=== PATIENT | female | born 1970 | race American Indian/Alaskan Native ===

== ENCOUNTER 2017-09-18 07:13 | Day surgery (SDC) | payer OTHER ==
[~2017-09-18 07:13] MED LIST: NACL 0.9% 1000 ML 1,000 ML IV SCH; OMNIPAQUE 300 MG/50 ML (CATH LAB) IV ONE; VERSED IV NR
[2017-09-18] MEDS ORDERED: XYLOCAINE MPF 2% ONE (09:50)
[2017-09-18] MEDS ORDERED: DIPRIVAN 10 MG/ML IV ONE (09:50)
[2017-09-18] MEDS ORDERED: ZOFRAN ONE (09:50)
[2017-09-18] MEDS ORDERED: DILAUDID ONE (09:51)
[2017-09-18] MEDS ORDERED: DECADRON ONE (09:54)
[2017-09-18] MEDS ORDERED: ANCEF/STERILE WATER 2 GM/20 ML IV NR (10:00)
[2017-09-18] MEDS ORDERED: DILAUDID IV PRN (10:01)
[2017-09-18] MEDS ORDERED: ZOFRAN IV PRN (10:01)
--- NOTE | 2017-09-18 10:01 | Anesthesia Day of Surgery ---
Anesthesia Day of Surgery - Day of Surgery Patient Examined: Yes Patient H&P Reviewed: Yes Patient is NPO: Yes
--- NOTE | 2017-09-18 10:01 | Anesthesia Consultation ---
Anesthesia Consult and Med Hx Date of service: 09/18/17 - Airway Anesthetic Teeth Evaluation: Good ROM Head & Neck: Adequate Mental/Hyoid Distance: Adequate Mallampati Class: Class II Intubation Access Assessment: Probably Good - Pulmonary Exam CTA: Yes - Cardiac Exam Cardiac Exam: RRR - Pre-Operative Health Status ASA Pre-Surgery Classification: ASA2 Proposed Anesthetic Plan: General - Pulmonary Hx Smoking: No Hx Sleep Apnea: No (KO PRE SCREEN HIGH RISK) - Cardiovascular System Hx Hypertension: No - Central Nervous System Hx Back Pain: Yes - Endocrine Hx Hypothyroidism: Yes (ON DAILY MEDS) - Hematic Hx Anemia: (NOT RECENT)
[2017-09-18] MEDS ORDERED: OMNIPAQUE 300 MG/50 ML (CATH LAB) IV ONE (10:40)
[2017-09-18] MEDS ORDERED: TORADOL ONE (11:07)
[2017-09-18] MEDS ORDERED: NACL 0.9% 1000 ML 1,000 ML ONE (11:13)
--- NOTE | 2017-09-18 12:15 | Short Stay Summary ---
Short Stay Documentation Date of service: 09/18/17 - Allergies and Medications Current Medications: Allergies No Known Allergies Allergy (Verified 09/11/17 11:55) Home Medications Medication Instructions Recorded Confirmed Last Taken Type Butalb/Acetamin/Caff 50-325-40 1 tab PO Q8HR PRN 09/11/17 09/18/17 09/04/17 History [Fioricet] Celecoxib [celeBREX] 200 mg PO PRN PRN 09/11/17 09/18/17 09/04/17 History Cholecalciferol (Vitamin D3) 2,000 unit PO DAILY 09/11/17 09/18/17 09/04/17 History [Vitamin D3] Diclofenac EC [Voltaren] 75 mg PO PRN PRN 09/11/17 09/18/17 09/04/17 History Levothyroxine Sodium [Synthroid] 175 mcg PO DAILY 09/11/17 09/18/17 09/17/17 History Mirabegron [Myrbetriq] 25 mg PO QDAY 09/11/17 09/18/17 09/04/17 History traMADol [Ultram] 50 mg PO Q6HR PRN 09/11/17 09/18/17 09/04/17 History Active Medications Cefazolin Sodium (Ancef/Sterile Water 2 Gm/20 Ml) 2 gm IV PREOP NR Stop: 09/18/17 23:59 Hydromorphone HCl (Dilaudid) 0.5 mg IV Q10MIN PRN PRN Reason: Pain , Severe (7-10) Stop: 09/18/17 18:00 Sodium Chloride (Nacl 0.9% 1000 Ml) 1,000 mls @ 100 mls/hr IV DIRECT JULES Last Admin: 09/18/17 08:21 Dose: 100 mls/hr Midazolam HCl (Versed) 2 mg IV PREOP NR Stop: 09/18/17 23:59 Ondansetron HCl (Zofran) 4 mg IV ONCE PRN PRN Reason: Nausea And Vomiting Stop: 09/18/17 18:00 - Brief post op/procedure progress note Date of procedure: 09/18/17 Pre-op diagnosis: right hydro, uret abn rad Post-op diagnosis: same Procedure: cysto righ urs, rt 628 stent brpg Anesthesia: GETA Findings: uret sten, hydro Surgeon: YUDELKA NEIL Estimated blood loss: minimal Pathology: none Condition: stable - Hospital course Hospital course: [facility] - Disposition Condition at discharge: Good Disposition: DC-01 TO HOME OR SELFCARE Short Stay Discharge Plan Activity: advance as tolerated Diet: advance as tolerated Follow up with: YUDELKA NEIL MD [Staff Physician] - 7 Days
--- NOTE | 2017-09-18 16:10 | Post Anesthesia Evaluation ---
- Post Anesthesia Evaluation Patient Participated: Yes Airway Patent: Yes Stable Respiratory Function: Yes Nausea/Vomiting: No Temp > 96.8F: Yes Pain Manageable: Yes Adequeate Hydration: Yes
[2017-09-18 21:06] VITALS: BP 115/60
--- NOTE | 2017-09-20 09:01 | Fluoroscopy Report ---
FLUOROSCOPY RETROGRADE UROGRAPHY: HISTORY: Hydronephrosis. FINDINGS: Fluoroscopy was provided by radiology during retrograde urography by the urologist. 14 fluoroscopic images were captured. There is adequate filling of the ureters and intrarenal collecting systems with no filling defects or anatomic abnormalities identified. Please correlate with the procedural report if needed. A right ureteral stent was placed which adequately drains the right collecting system on the final image. IMPRESSION: Right ureteral stent placement.
--- NOTE | 2017-09-30 22:58 | Operative Report ---
PREOPERATIVE DIAGNOSIS: Right hydro and ureteral abnormality. POSTOPERATIVE DIAGNOSIS: Right hydro and ureteral abnormality. PROCEDURE: Cystoscopy, right ureteroscopy, right 6 x 20 double-J stent, bilateral RPG. ANESTHESIA: General. FINDINGS: Ureteral stenosis and hydronephrosis. ESTIMATED BLOOD LOSS: Minimal. SURGEON: Radu Merino MD PATHOLOGY: None. CONDITION: Stable. CLINICAL INDICATIONS: The patient was counseled RCBA, antibiotics, SCDs. She had CT that demonstrated hydronephrosis and some calyceal blunting and some possible ureteral abnormality proximally. The patient was counseled on options including observation with interval imaging, uterine cancer cells studies, cystoscopy with RPG are aggressive with ureteroscopy for visualization. She wanted to proceed with this. DESCRIPTION OF PROCEDURE: The patient had antibiotics, SCDs, transferred to OR suite in supine position, anesthesia, dorsal lithotomy, prepped and draped in standard fashion. A 22-Nepali scope passed. Pancystoscopy 30 and 70 degree lens, no tumors or lesions. Left UO cannulated 8 Nepali cone-tipped catheter, contrast injected. Normal left distal ureter, proximal ureter, renal pelvis calyces. No filling defects or hydronephrosis. Repeated on the right side with some narrowing of the ureter and hydronephrosis and some blunting of the calyces. At this point, a Glidewire was passed. We attempted passing a flexible ureteroscope and this would not pass. I used 8/10 ureteral dilator. Then, we did pass this flexible scope. We were able to pass up to the mid ureter, but unable to pass easily beyond this point. Of note, even in this mid ureter, there seemed to be areas of mild stenosis whether this was no clear tumor up to that point, but seemed to be some stenosis of the ureter even visualizing distally some stenosis likely. At this point, it was elected to remove the scope. Wire backloaded on the cystoscope. A 6 x 20 double-J stent was passed under direct and fluoroscopic visualization. When the wire and string was removed, nice proximal and distal J. Bladder drained. Exam under anesthesia, no palpable urethral masses. PLAN: The patient will undergo staged options and discussed in the office, after passive dilation, removal of stent, and repeat attempt at ureteroscopy. JOB# [id number] ATS/NTS
== END 2017-09-18 14:55 | disposition home or self-care (01) ==
LOC: OR 07:13
PROVIDERS: ATTEND Urology
DX: N13.0 Hydronephrosis with ureteropelvic junction obstruction (principal); N13.5 Crossing vessel and stricture of ureter without hydronephrosis; I10 Essential (primary) hypertension; E03.9 Hypothyroidism, unspecified; Z79.899 Other long term (current) drug therapy
CPT/HCPCS: 52332; 74420; 81025; C1726; C1758; C1769; C2617; J0690; J1100; J1170; J1885; J2405; J2704; J7030; Q9967

== ENCOUNTER 2017-10-24 06:10 | Day surgery (SDC) | payer OTHER ==
[2017-10-24] MEDS ORDERED: NACL BACTERIOSTATIC INFILTRATI ONE (07:05)
[2017-10-24] MEDS ORDERED: XYLOCAINE MPF 2% ONE (07:18)
[2017-10-24] MEDS ORDERED: DIPRIVAN 10 MG/ML IV ONE (07:18)
[2017-10-24] MEDS ORDERED: DECADRON ONE (07:18)
[2017-10-24] MEDS ORDERED: DILAUDID ONE (07:19)
[2017-10-24] MEDS ORDERED: ZOFRAN ONE (07:19)
--- NOTE | 2017-10-24 07:45 | Anesthesia Consultation ---
Anesthesia Consult and Med Hx Date of service: 10/24/17 - Airway Anesthetic Teeth Evaluation: Good ROM Head & Neck: Adequate Mental/Hyoid Distance: Adequate Mallampati Class: Class III Intubation Access Assessment: Possibly Difficult - Pulmonary Exam CTA: Yes - Cardiac Exam Cardiac Exam: RRR - Pre-Operative Health Status ASA Pre-Surgery Classification: ASA3 Proposed Anesthetic Plan: General - Pulmonary Hx Smoking: No Hx Sleep Apnea: No (KO PRE SCREEN HIGH RISK) - Cardiovascular System Hx Hypertension: No - Central Nervous System Hx Back Pain: Yes Hx Psychiatric Problems: Yes (anxiety) - Endocrine Hx Hypothyroidism: Yes (ON DAILY MEDS) - Hematic Hx Anemia: (NOT RECENT) - Additional Comments Anesthesia Medical History Comments: migraines, anemia, UTI
--- NOTE | 2017-10-24 07:45 | Anesthesia Day of Surgery ---
Anesthesia Day of Surgery - Day of Surgery Patient Examined: Yes Patient H&P Reviewed: Yes Patient is NPO: Yes
[2017-10-24] MEDS ORDERED: LACTATED RINGERS 1,000 ML IV SCH (08:00)
[2017-10-24] MEDS ORDERED: ANCEF/STERILE WATER 2 GM/20 ML 2 GM/20 ML SYRINGE IV ONE (08:25)
[2017-10-24] MEDS ORDERED: WATER FOR IRRIG STERILE IR ONE (08:30)
[2017-10-24] MEDS ORDERED: OMNIPAQUE 300 MG/50 ML (CATH LAB) IV ONE (08:30)
--- NOTE | 2017-10-24 08:34 | Short Stay Summary ---
Short Stay Documentation Date of service: 10/24/17 - Allergies and Medications Current Medications: Allergies No Known Allergies Allergy (Verified 09/11/17 11:55) Home Medications Medication Instructions Recorded Confirmed Last Taken Type Butalb/Acetamin/Caff 50-325-40 1 tab PO Q8HR PRN 09/11/17 10/22/17 10 Days Ago History [Fioricet] ~10/14/17 Cholecalciferol (Vitamin D3) 2,000 unit PO DAILY 09/11/17 10/22/17 10 Days Ago History [Vitamin D3] ~10/14/17 Levothyroxine Sodium [Synthroid] 175 mcg PO DAILY 09/11/17 10/22/17 10 Days Ago History ~10/14/17 Mirabegron [Myrbetriq] 25 mg PO QDAY 09/11/17 10/22/17 10 Days Ago History ~10/14/17 traMADol [Ultram] 50 mg PO Q6HR PRN 09/11/17 10/22/17 10 Days Ago History ~10/14/17 HYDROcodone/APAP 5-325 [[place] 1 each PO Q4HR PRN #25 tablet 09/18/17 10/24/17 10 Days Ago Rx 5-325 mg TAB] ~10/14/17 Active Medications Cefazolin Sodium (Ancef/Sterile Water 2 Gm/20 Ml) 2 gm IV PREOP NR Lactated Ringer's (Lactated Ringers) 1,000 mls @ 100 mls/hr IV DIRECT JULES Last Admin: 10/24/17 07:41 Dose: 100 mls/hr - Brief post op/procedure progress note Date of procedure: 10/24/17 Pre-op diagnosis: hematuria, abn rad find Post-op diagnosis: same Procedure: cysto, right stent removal right urs Anesthesia: GETA Findings: no tumor, NO STENT LEFT Surgeon: YUDELKA NEIL Estimated blood loss: none Pathology: none Condition: stable - Hospital course Hospital course: [email or web address] - Disposition Condition at discharge: Good Disposition: DC-01 TO HOME OR SELFCARE Short Stay Discharge Plan Activity: advance as tolerated Follow up with: YUDELKA NEIL MD [Staff Physician] - 7 Days
[2017-10-24] MEDS ORDERED: ANCEF/STERILE WATER 2 GM/20 ML IV NR (09:00)
[2017-10-24 16:22] VITALS: BP 126/82
--- NOTE | 2017-10-25 07:27 | Fluoroscopy Report ---
FLUORO RETROGRADE UROGRAPHY INDICATION: Hematuria. COMPARISON: 09/18/2017. IMAGES/CINE CLIPS: 11 FINDINGS: Procedure performed by Dr. Daly. 6 mL of Omnipaque 300 utilized. Initial shotblaster radiographs from 8:40 AM again demonstrates right double-J ureteral stent in place as also an IUD. Subsequent image as from 8:57 AM demonstrates stent removal with now a ureteral wire and uteroscopy. Mild to moderate hydronephrosis noted, increased since the prior exam. Right contrast drained at the end of the exam. CONCLUSION: Intraoperative fluoroscopic assistance provided for right retrograde pyelogram, uteroscopy and stent removal with mild to moderate right hydronephrosis noted, as described. Please correlate. Thank you for the opportunity to participate in this patient's care.
--- NOTE | 2017-11-02 13:19 | Operative Report ---
PREOPERATIVE DIAGNOSIS: Rule out abnormal finding on radiological imaging, hematuria is certain. POSTOPERATIVE DIAGNOSIS: Rule out abnormal finding on radiological imaging hematuria is certain. PROCEDURE: Cystoscopy, stent removal, flexible ureteroscopy, RPG. SURGEON: Navya Spear M.D. ANESTHESIA: General. SPECIMEN: None. ESTIMATED BLOOD LOSS: Minimal. COMPLICATIONS: None. FINDINGS: No tumor lesion or other abnormality of the ureter or renal pelvis. CLINICAL INDICATIONS: Counseled on RCBA, antibiotic, SCDs, had given options including just observation, interval imaging with awake anesthesia versus ureteroscopy and want to proceed with ureteroscopy. Unable to pass the scope up ureter in the past time, so a stent was placed in this stage. DESCRIPTION OF PROCEDURE: Transfer to OR suite in supine position. Anesthesia dorsal lithotomy, prepped and draped in standard fashion. A 22-Niuean scope passed. Stent was visualized. Glidewire was passed adjacent to the stent up to the right renal pelvis, stent was pulled out intact. Next, a flexible ureteroscope was passed over the wire up to the distal ureter. Proximal ureter was mildly stenosed, but no ureteral lesions. UPJ, renal pelvis was inspected and contrast injected to inspect upper and lower pole and all of calices. Good visualization. No significant erythema, no papillary lesions, no irregularity, no area that is suspicious for tumors, no areas to biopsy. Scope was slowly withdrawn. It did seem to be maybe slightly narrow at the UPJ with possibly mild UPJ obstruction, but the scope was withdrawn and no other abnormality was seen when it was passed a couple of times. The scope was withdrawn, efflux in the right ureter. The patient awakened and transferred to PACU in good and stable condition. JOB# [id number] ATS/NTS
== END 2017-10-24 12:00 | disposition home or self-care (01) ==
LOC: OR 06:10
PROVIDERS: ATTEND Urology
DX: N13.0 Hydronephrosis with ureteropelvic junction obstruction (principal); E03.9 Hypothyroidism, unspecified; G43.909 Migraine, unspecified, not intractable, without status migrainosus; F41.9 Anxiety disorder, unspecified; Z79.899 Other long term (current) drug therapy
CPT/HCPCS: 52354; 74420; 81025; A4217; C1758; C1769; J0690; J1100; J1170; J2405; J2704; J7120; Q9967